=== PATIENT | female | born 1975 | race African-American/Black ===

== ENCOUNTER 2018-03-12 16:47 | Emergency (ER) | payer MEDICAID ==
[~2018-03-12] VITALS: Ht 167.6 cm; Wt 72.0 kg
[2018-03-12 17:22] VITALS: BP 130/70
== END 2018-03-12 21:12 | disposition left against medical advice (07) ==
LOC: ER 16:47
DX: O90.89 Other complications of the puerperium, not elsewhere classified (principal)
CPT/HCPCS: 99281